=== PATIENT | male | born 1985 | race Caucasian/White ===

== ENCOUNTER 2021-02-07 00:06 | Emergency (ER) | payer OTHER ==
[2021-02-07] MEDS ORDERED: diphenhydrAMINE 25 MG CAP ONE (00:30)
[2021-02-07] MEDS ORDERED: Famotidine 20 MG TAB ONE (00:30)
[2021-02-07] MEDS ORDERED: Acetaminophen 500 MG TAB ONE (00:49)
[2021-02-08 15:28] LABS: SARS-CoV-2 PCR by NAA Not Detected (NotDetected)
== END 2021-02-07 01:49 | disposition home or self-care (01) ==
LOC: NAV ERS 00:06
DX: B34.9 Viral infection, unspecified (principal); F17.210 Nicotine dependence, cigarettes, uncomplicated; K21.9 Gastro-esophageal reflux disease without esophagitis; Z79.899 Other long term (current) drug therapy; Z20.822 Contact with and (suspected) exposure to COVID-19
CPT/HCPCS: 87804; 99283; U0003; U0005

== ENCOUNTER 2022-11-16 23:19 | Emergency (ER) | payer BC, OTHER ==
[2022-11-17] MEDS ORDERED: Sodium Chloride 0.9% 1,000 ML ONE (00:03)
[2022-11-17] MEDS ORDERED: Ondansetron PF 4 MG/2 ML Vial ONE (00:03)
[2022-11-17 00:06] LABS: %Lymphocytes 15.4 % (21.0-51.0); %Neutrophils 78.6 % (42.0-75.0); Hematocrit 44.5 % (42.0-52.0); Hemoglobin 14.7 g/dL (14.0-18.0); Mean Corpuscular Hemoglobin 30.4 pg (27.0-31.0); Mean Corpuscular Volume 92.1 fl (78.0-98.0); Mean Platelet Volume 8.9 fL (7.4-10.4); Platelet Count 84 10x3/uL (130-400); RBC Distribution Width 11.7 % (11.5-14.5); Red Blood Cell (RBC) Count 4.83 mill/uL (4.70-6.10)
[2022-11-17 00:07] LABS: #Lymphocytes 1.2 thou/uL (1.20-3.40); #Monocytes 0.4 thou/uL (0.11-0.59); #Neutrophils 6.3 thou/uL (1.40-6.50); %Basophils 0.5 % (0.0-1.0); %Eosinophils 0.1 % (0.0-10.0); %Monocytes 5.5 % (0.0-10.0)
[2022-11-17 00:13] LABS: ALT (SGPT) 43 U/L (8-55); AST (SGOT) 28 U/L (5-34); Albumin 3.1 g/dL (3.5-5.0); Alkaline Phosphatase 100 U/L (40-110); Anion Gap 13 mmol/L (10-20); BUN (Urea Nitrogen) 12 mg/dL (8.9-20.6); Bilirubin, Total 1.5 mg/dL (0.2-1.2); Calc. Creatinine Clearance 0 mL/min (70-130); Calcium 8.5 mg/dL (7.8-10.44); Carbon Dioxide 23 mmol/L (22-29); Chloride 100 mmol/L (98-107); Estimated GFR 108; Globulin 4.9 g/dL (2.4-3.5); Glucose 383 mg/dL (70-105); Lipase 12 U/L (8-78); Sodium 132 mmol/L (136-145)
== END 2022-11-17 01:30 | disposition home or self-care (01) ==
LOC: NAV ERS 23:19
DX: B34.9 Viral infection, unspecified (principal); E86.0 Dehydration; E11.9 Type 2 diabetes mellitus without complications; K21.9 Gastro-esophageal reflux disease without esophagitis; F17.210 Nicotine dependence, cigarettes, uncomplicated; Z79.899 Other long term (current) drug therapy
CPT/HCPCS: 80053; 83690; 85025; 87804; 96361; 96374; J2405; J7050

== ENCOUNTER 2023-02-10 17:05 | Outpatient (CLI) | payer BC | END 2023-02-10 17:06 | disposition home or self-care (01) | LOC: NAV RAD 17:05 | PROVIDERS: ATTEND Nurse Practitioner Family | DX: R05.1 Acute cough (principal); R50.9 Fever, unspecified; M79.10 Myalgia, unspecified site | CPT/HCPCS: 71046 ==